=== PATIENT | male | born 1990 | race African-American/Black ===

== ENCOUNTER 2017-03-02 22:00 | Emergency (ER) | payer OTHER ==
[~2017-03-02] VITALS: Ht 177.8 cm; Wt 81.6 kg
[2017-03-02 22:30] VITALS: BP 118/71
--- NOTE | 2017-03-02 22:42 | Emergency Room Report ---
History of Present Illness General Chief Complaint: Fever Source: Patient Present Illness HPI The patient presents with 2 days of upper his story symptoms with fever and vomiting yesterday. He's been taking them puerile inhaler and NyQuil. His sinuses have been congested. He's coughing up clear material and has bad taste. There's no sore throat. He had a episode where his tingling in his chest with coughing episode he was concerned about that. There is no tone and was going to pass out and was in a excessively hard cough at that time. He is tolerating by mouth fluids at this time. He did not get a flu shot this year. + diarrhea. Patient questionably exposed to TB in December. CXR was negative, but no skin testing done. No rashes. No dysuria. Muscle aches and slight headache. Allergies: Coded Allergies: ASPIRIN (Verified Allergy, Unknown, 03/02/17) Patient History Past Medical History: see triage record Social History: Denies: smoking Social History Narrative animation student Reviewed Nursing Documentation: PMH: Agreed, PSxH: Agreed Nursing Documentation-PMH Past Medical History: No History, Except For Hx Asthma: Yes Review of Systems All Other Systems: negative except mentioned in HPI Physical Exam Vital Signs Date Time Temp Pulse Resp B/P (MAP) Pulse Ox O2 Delivery O2 Flow Rate FiO2 03/02/17 22:11 99.3 99 16 118/71 96 Room Air Sp02 EP Interpretation: reviewed, normal General Appearance: well appearing, no apparent distress, GCS 15 Head: normocephalic Eyes: bilateral eye normal inspection, bilateral eye PERRL ENT: normal pharynx, moist mucus membranes, other - nasal sound to voice Neck: supple Respiratory: lungs clear, normal breath sounds, other - post tussive wheeze = minimal Cardiovascular #1: regular rate, rhythm Cardiovascular #2: 2+ radial (R) Gastrointestinal: normal inspection, normal bowel sounds, non tender, no mass, non-distended Musculoskeletal: back normal, gait/station normal, normal range of motion Neurologic: alert, oriented x3, grossly normal Psychiatric: mood/affect normal Skin: normal inspection, warm/dry Medical Decision Making Diagnostic Impression: Primary Impression: Influenza Additional Impression: Bronchospasm ER Course Patient presents with URI symptoms with wheezing and vomiting. Differential includes influenza, asthmatic bronchitis, bronchitis, asthma exacerbation amongst others. Initially I was going to her influenza swab. He states he was worried about time delay as he has work too do. The treated with albuterol, Tamiflu and Tylenol. Patient improved with treatment. During the albuterol, he reported the tingling which lasted about 10 minutes. I discussed hyperventilation and advised not to deep breathe. Lung exam improved, no forced exhalation wheezes. Patient stable for outpatient observation and treatment. EKG Diagnostic Results Rate: normal Rhythm: NSR ST Segments: no acute changes Rhythm Strip Diag. Results EP Interpretation: yes Rhythm: NSR, no PVC's, no ectopy Last Vital Signs Date Time Temp Pulse Resp B/P (MAP) Pulse Ox O2 Delivery O2 Flow Rate FiO2 03/02/17 23:58 98.9 03/02/17 23:00 79 16 99 Room Air 21 03/02/17 22:11 118/71 Status: improved Disposition: HOME, SELF-CARE Condition: Improved Scripts Acetaminophen (Tylenol) 325 Mg Tablet 650 MG ORAL Q6H Y for fever or pain, #20 TAB 0 Refills Prov: Jose Guzman M.D. 03/02/17 Albuterol Sulfate* (ALBUTEROL SULFATE MDI*) 8.5 Gm Hfa.aer.ad 2 PUFF INH Q6H, #1 EA 1 Refill Prov: Jose Guzman M.D. 03/02/17 Promethazine HCl/Codeine (Prometh-Codein 6.25-10 mg/5 ml) 5 Ml Syrup 5 ML PO Q6HR, #60 ML Prov: Jose Guzman M.D. 03/02/17 Oseltamivir Phosphate (Tamiflu) 75 Mg Capsule 75 MG ORAL TWICE A DAY, #10 CAP Prov: Jose Guzman M.D. 03/02/17 Jose Guzman M.D. Mar 02, 2017 22:42
[2017-03-02] MEDS ORDERED: Acetaminophen 500mg (ES) tab ORAL ONE (22:45)
[2017-03-02] MEDS ORDERED: Albuterol/Ipratropium 3ml neb HHN ONE (22:45)
[2017-03-02] MEDS ORDERED: Oseltamivir 75mg cap ORAL STA (23:19)
[2017-03-02 23:30] VITALS: BP 122/70
[2017-03-02] MEDS ORDERED: TYLENOL325 MG ORAL (23:51)
[2017-03-02] MEDS ORDERED: PROMETH-CODEIN 65 ML PO (23:51)
[2017-03-02] MEDS ORDERED: TAMIFLU75 MG ORAL (23:51)
[2017-03-02] MEDS ORDERED: ALBUTEROL SULF8.5 GM INH (23:51)
[2017-03-02 23:58] VITALS: BP 122/78
[2017-03-03] MEDS ORDERED: Oseltamivir 75mg cap ORAL SCH (09:00)
--- NOTE | 2017-03-03 19:09 | Cardiology Report ---
APPROVED REPORT EKG Measurement Heart [id number] Sinus rhythm with marked sinus arrhythmia Nonspecific T wave abnormality Abnormal ECG
== END 2017-03-02 23:58 | disposition home or self-care (01) ==
LOC: EMR 22:42
DX: J11.1 Influenza due to unidentified influenza virus with other respiratory manifestations (principal); J98.01 Acute bronchospasm; J45.909 Unspecified asthma, uncomplicated; Z88.6 Allergy status to analgesic agent
CPT/HCPCS: 93005; 94640; 94664; 99284; J7620

== ENCOUNTER 2018-04-25 19:32 | Emergency (ER) | payer BC, OTHER ==
[~2018-04-25] VITALS: Ht 177.8 cm; Wt 81.6 kg
[~2018-04-25 19:32] MED LIST: ALBUTEROL SULF8.5 GM INH; PROMETH-CODEIN 65 ML PO; TAMIFLU75 MG ORAL; TYLENOL325 MG ORAL
[2018-04-25 20:00] VITALS: BP 151/83
[2018-04-25] MEDS ORDERED: Albuterol ud Inhalation HHN ONE (20:00)
[2018-04-25] MEDS ORDERED: Ipratropium 0.02% Inh Soln 2.5ml UD HHN ONE (20:00)
[2018-04-25] MEDS ORDERED: Solu-MEDROL 125mg Inj IVP ONE (20:00)
--- NOTE | 2018-04-25 20:05 | NUR ---
ED Nurse Note: patient presents with complaints of chest tightness and lack of asthma medication. Patient reports no pain and has no s/s of acute distress.
--- NOTE | 2018-04-25 20:23 | NUR ---
ED Nurse Note: Patient tolerating breathing treatment well. friend at bedside.
--- NOTE | 2018-04-25 21:10 | Emergency Room Report ---
History of Present Illness General Chief Complaint: Asthma Source: Patient Present Illness HPI Patient presents with wheezing. Apparently he ran out of his inhaler. Is been ill for 2 days. He denies chest pain. No fevers or chills. There is no productive cough. This is not his worst asthma attack. No palpitations, nausea, vomiting, diarrhea, dysuria, abdominal pain, depression , visual changes, headache. Allergies: Coded Allergies: ASPIRIN (Verified Allergy, Unknown, 03/02/17) Patient History Past Medical History: see triage record Social History: Denies: smoking Social History Narrative Reviewed Nursing Documentation: PMH: Agreed; PSxH: Agreed Nursing Documentation-PMH Past Medical History: No History, Except For Hx Asthma: Yes Review of Systems All Other Systems: negative except mentioned in HPI Physical Exam Vital Signs Date Time Temp Pulse Resp B/P (MAP) Pulse Ox O2 Delivery O2 Flow Rate FiO2 04/25/18 19:38 98.2 108 18 151/83 98 Room Air 04/25/18 20:18 21 Sp02 EP Interpretation: reviewed, normal General Appearance: well appearing, no apparent distress, GCS 15 Head: normocephalic, atraumatic Eyes: bilateral eye normal inspection, bilateral eye PERRL ENT: hearing grossly normal, normal voice, moist mucus membranes Neck: full range of motion, supple Respiratory: no respiratory distress, speaking full sentences, wheezing, expiration Cardiovascular #1: regular rate, rhythm Cardiovascular #2: 2+ radial (L) Gastrointestinal: normal inspection Musculoskeletal: gait/station normal, normal range of motion, no calf tenderness Neurologic: alert, oriented x3, normal gait, grossly normal Psychiatric: mood/affect normal Skin: no rash Medical Decision Making Diagnostic Impression: Primary Impression: Asthma Qualified Codes: J45.21 - Mild intermittent asthma with (acute) exacerbation ER Course Patient presents with dyspnea and wheezing. Differential includes asthma exacerbation, pneumonia, bronchitis amongst others. Breathing treatments are indicated as well as prednisone. A chest x-ray will be obtained. Patient placed on shelter monitor. Patient exercised after treatment. No wheezes and no respiratory distress. Discussed treatment with patient and spouse. They understand the plan. They need to find a physician Friday. Patient stable for outpatient observation and treatment. Rhythm Strip Diag. Results EP Interpretation: yes Rhythm: NSR, no PVC's, no ectopy Chest X-Ray Diagnostic Results Chest X-Ray Diagnostic Results : Chest X-Ray Ordered: Yes # of Views/Limited/Complete: 1 View Indication: Shortness of Breath EP Interpretation: Yes Interpretation: no consolidation, no effusion, no pneumothorax Impression: No acute disease Electronically Signed by: Electronically signed by Jose Guzman MD Last Vital Signs Date Time Temp Pulse Resp B/P (MAP) Pulse Ox O2 Delivery O2 Flow Rate FiO2 04/25/18 22:56 120 18 100 Room Air 21 04/25/18 21:17 98.2 151/83 Status: improved Disposition: HOME, SELF-CARE Condition: Improved Scripts Prednisone* (PREDNISONE*) 20 Mg Tablet 20 MG ORAL DAILY, #3 TAB Prov: Jose Guzman MD 04/25/18 Albuterol Sulfate* (ALBUTEROL SULFATE MDI*) 8.5 Gm Hfa.aer.ad 2 PUFF INH Q6H, #1 EA 0 Refills Prov: Jose Guzman MD 04/25/18 Jose Guzman MD Apr 25, 2018 21:10
[2018-04-25] MEDS ORDERED: ALBUTEROL SULF8.5 GM INH (21:12)
[2018-04-25] MEDS ORDERED: PREDNISONE20 MG ORAL (21:12)
[2018-04-25 21:17] VITALS: BP 151/83
--- NOTE | 2018-04-25 21:17 | NUR ---
ED Nurse Note: Patient discharged in stable condition, no s/s of acute distress. patient departed with all personal belongings, ID band removed. patient accompanied by friend.
== END 2018-04-25 21:17 | disposition home or self-care (01) ==
LOC: EMR 20:16
DX: J45.21 Mild intermittent asthma with (acute) exacerbation (principal); Z88.6 Allergy status to analgesic agent
CPT/HCPCS: 94640; 94664; 96374; 99284; J7512

== ENCOUNTER 2018-06-05 20:12 | Emergency (ER) | payer BC ==
[~2018-06-05] VITALS: Ht 177.8 cm; Wt 81.6 kg
[~2018-06-05 20:12] MED LIST changes: +PREDNISONE20 MG ORAL
[2018-06-05 20:20] VITALS: BP 124/75
--- NOTE | 2018-06-05 20:25 | NUR ---
ED Nurse Note: cough and congestion with post nasal drip x 1 week with asthma, emesis x 1 this am and diarrhea, w/appetite changes. AO4. NAD. VSS.
[2018-06-05] MEDS: Ipratropium 0.02% Inh Soln 2.5ml UD HHN SCH ×3 (20:40→21:00)
[2018-06-05] MEDS: Albuterol ud Inhalation HHN SCH ×3 (20:40→21:00)
[2018-06-05] MEDS ORDERED: PREDNISONE20 MG ORAL (21:16)
[2018-06-05] MEDS ORDERED: COMP-AIR NEBUL1 EACH MC (21:16)
[2018-06-05] MEDS ORDERED: PROAIR HFA8.5 GM INH (21:16)
[2018-06-05] MEDS ORDERED: ALBUTEROL2.5 MG/3 M HHN (21:16)
[2018-06-05 21:20] VITALS: BP 124/75
--- NOTE | 2018-06-05 21:20 | NUR ---
ER DISCHARGE NOTE: Patient is cleared to be discharged per ERMD, pt is aox4, on room air, with stable vital signs. Accompanied by family member. pt was given dc and prescription instructions, pt was able to verbalize understanding, pt id band removed. pt is able to ambulate with steady gait. pt took all belongings.
--- NOTE | 2018-06-06 22:06 | Emergency Room Report ---
History of Present Illness General Chief Complaint: Flu Like Symptoms Source: Patient Present Illness HPI 27-year-old male presents ED for evaluation. Complaining of wheezing, cough, congestion, diarrhea times one week. History of asthma. States that his inhaler is not helping. Cough is dry. Denies fevers or chills. Denies sick contacts or recent travel. No other aggravating relieving factors. Denies any other associated symptoms Allergies: Coded Allergies: ASPIRIN (Verified Allergy, Unknown, 06/05/18) Patient History Past Medical History: asthma Past Surgical History: none Pertinent Family History: none Social History: Denies: smoking, alcohol use, drug use Immunizations: UTD Reviewed Nursing Documentation: PMH: Agreed; PSxH: Agreed Nursing Documentation-PMH Past Medical History: No Stated History Hx Asthma: Yes Review of Systems All Other Systems: negative except mentioned in HPI Physical Exam Vital Signs Date Time Temp Pulse Resp B/P (MAP) Pulse Ox O2 Delivery O2 Flow Rate FiO2 06/05/18 20:14 99.0 119 18 124/75 98 Room Air 06/05/18 20:44 21 Sp02 EP Interpretation: reviewed, normal General Appearance: no apparent distress, alert, GCS 15, non-toxic Head: normocephalic, atraumatic Eyes: bilateral eye normal inspection, bilateral eye PERRL ENT: hearing grossly normal, normal pharynx, no angioedema, normal voice Neck: full range of motion, supple/symm/no masses Respiratory: chest non-tender, speaking full sentences, wheezing Cardiovascular #1: regular rate, rhythm, no edema Cardiovascular #2: 2+ carotid (R), 2+ carotid (L), 2+ radial (R), 2+ radial (L) , 2+ dorsalis pedis (R), 2+ dorsalis pedis (L) Gastrointestinal: normal bowel sounds, non tender, soft, non-distended, no guarding, no rebound Rectal: deferred Genitourinary: normal inspection, no CVA tenderness Musculoskeletal: back normal, gait/station normal, normal range of motion, non- tender Neurologic: alert, oriented x3, responsive, motor strength/tone normal, sensory intact, speech normal Psychiatric: judgement/insight normal, memory normal, mood/affect normal, no suicidal/homicidal ideation Reflexes: 3+ bicep (R), 3+ bicep (L), 3+ tricep (R), 3+ tricep (L), 3+ knee (R) , 3+ knee (L) Skin: normal color, no rash, warm/dry, well hydrated Lymphatic: no adenopathy Medical Decision Making Diagnostic Impression: Primary Impression: Asthma Qualified Codes: J45.909 - Unspecified asthma, uncomplicated ER Course Hospital Course 27-year-old male presents to ED complaining of cough, wheezing Differential diagnoses include: URI, bronchitis, asthma/COPD, pneumonia Clinical course Patient placed on stretcher. After initial history, physical exam reveals a male in no acute distress. Bilateral TM unremarkable. No pharyngeal erythema. No tonsillar exudates. No lymphadenopathy. Mild wheezing noted on exam, no signs of respiratory distress or retractions. Patient given Prednisone and albuterol/atrovent treatment in ED with symptoms improved. Reassurance given Discussed findings with patient. Safe for discharge or close outpatient follow- up. He states that his Ventolin inhaler does not work. States prior works better for him. We'll changed Pro Air. Patient states he used to have a nebulizer machine but lost it. We'll provide him refill a prescription Safe for discharge with close outpatient follow-up. Does not have a PMD. We' ll provide referrals Diagnosis - asthma Stable and discharged home with prescriptions for albuterol, prednisone, nebulizer. Instructed to followup with PMD. Return to ED if symptoms recur or worsen Last Vital Signs Date Time Temp Pulse Resp B/P (MAP) Pulse Ox O2 Delivery O2 Flow Rate FiO2 06/05/18 21:20 99.0 104 19 124/75 100 Room Air 21 Status: improved Disposition: HOME, SELF-CARE Condition: Stable Scripts Nebulizer/Compressor (COMP-AIR NEBULIZER SYSTEM) 1 Each Each EACH , #1 Prov: Sam Herndon MD 06/05/18 Albuterol Sulfate* (ALBUTEROL SULFATE HHN*) 2.5 Mg/3 Ml Vial.neb 2.5 MG HHN Q4H PRN for Shortness of Breath, #25 VIAL Prov: Sam Herndon MD 06/05/18 Prednisone* (PREDNISONE*) 20 Mg Tablet 40 MG ORAL DAILY, #10 TAB Prov: Sam Herndon MD 06/05/18 Albuterol Sulfate* (PROAIR HFA*) 8.5 Gm Hfa.aer.ad 2 PUFFS INH Q6H, #8.5 GM 0 Refills Prov: Sam Herndon MD 06/05/18 Referrals: YAYA CADE (PCP) Jose Sanders MD [facility] Patient Instructions: Asthma, Adult, [id number] Sam Herndon MD Jun 06, 2018 22:06
== END 2018-06-05 21:20 | disposition home or self-care (01) ==
LOC: EMR 20:33
DX: J45.909 Unspecified asthma, uncomplicated (principal)
CPT/HCPCS: 94640; 94664; 99283; J7512